=== PATIENT | male | born 1975 | race Caucasian/White ===

== ENCOUNTER → 2019-10-18 | Outpatient (CLI) | payer OTHER ==
--- NOTE | 2019-10-18 10:09 | RAD ---
CT MAXILLOFACIAL WO CONTRAST History: Reason: NASAL POLYP / Spl. Instructions: / History: Comparison: None. Technique: Noncontrast CT imaging was performed of the sinuses. Coronal and sagittal reconstructions were performed. Exposure: One or more of the following individualized dose reduction techniques were utilized for this examination: 1. Automated exposure control 2. Adjustment of the mA and/or kV according to patient size 3. Use of iterative reconstruction technique. Findings: Bilateral maxillary sinus mucosal thickening with fluid levels. Left greater than right frontal sinus mucosal thickening. Partial opacification of ethmoid air cells, left greater than right. Fluid, secretions and mucosal thickening within the left greater the right sphenoid sinuses. Polypoid lesion within the nasal canal on the left anteriorly and potentially bilaterally posteriorly. Narrowing of the bilateral infundibulum with opacification of the left due to mucosal thickening. Narrowing of the right frontal ethmoidal recess with mucosal thickening. Opacification of the left frontal ethmoidal recess. Opacification of bilateral sphenoid ostia with mucosal thickening. Nasal septum is relatively midline. Mastoid air cells are clear. No fracture. Orbits are unremarkable. Imaged intracranial contents are unremarkable. Impression: 1. Diffuse paranasal sinus disease with fluid levels and secretions in the maxillary and sphenoid sinuses, can be seen with acute sinusitis in the appropriate clinical setting. 2. Narrowed drainage pathways, as described. 3. Polypoid lesions within the nasal passages, as described. Electronically signed by: Casimiro Juárez DO (10/18/2019 10:05 AM) [id number]
== END ==
LOC: CT 09:12
PROVIDERS: ATTEND Otolaryngology
DX: J01.80 Other acute sinusitis (principal); J34.89 Other specified disorders of nose and nasal sinuses
CPT/HCPCS: 70486

== ENCOUNTER → 2019-12-12 | Outpatient (CLI) | payer OTHER ==
--- NOTE | 2019-12-12 14:32 | RAD ---
CERVICAL SPINE 2-3V DATE: 12/12/2019 10:48 AM INDICATION: RIGHT ARM PAIN AND WARMNESS, NECK PAIN COMPARISON: None. FINDINGS: The cervical spine is visualized to the level of the cervicothoracic junction on the lateral views. Bones/Alignment: No evidence of acute fracture. There is no listhesis. Normal alignment of the lateral masses of C1 on C2. Joints: Mild multilevel degenerative disc disease, moderate at C5-6. The facets are normally aligned. Soft tissue: No significant prevertebral soft tissue swelling. IMPRESSION: Mild to moderate cervical spondylosis. This could be further characterized with MRI, as clinically warranted. Electronically signed by: Maykel Mansfield MD (12/12/2019 2:30 PM) [id number]
== END | disposition home or self-care (01) ==
LOC: PMG 10:43
PROVIDERS: ATTEND Family Medicine
DX: M54.12 Radiculopathy, cervical region (principal); M47.812 Spondylosis without myelopathy or radiculopathy, cervical region; M50.322 Other cervical disc degeneration at C5-C6 level; M79.601 Pain in right arm
CPT/HCPCS: 72040

== ENCOUNTER → 2019-12-28 | Outpatient (CLI) | payer OTHER ==
--- NOTE | 2019-12-28 17:24 | RAD ---
EXAM: Left foot, 3 views. HISTORY: Pain. COMPARISON: None. FINDINGS: 3 views of the left foot are obtained. There is no fracture, dislocation or subluxation. There is a small plantar spur. IMPRESSION: No acute osseous finding. Electronically signed by: Stefanie Yanes MD (12/28/2019 5:21 PM) [id number]
--- NOTE | 2019-12-28 18:17 | RAD ---
EXAMINATION: ELBOW RIGHT 3V CLINICAL HISTORY: Right elbow pain TECHNIQUE: ELBOW RIGHT 3V Number of images/views: 3 COMPARISON: None FINDINGS: Joint spaces and alignment maintained. No acute fracture. Tiny medial epicondylar enthesophyte. No significant joint effusion. IMPRESSION: No acute osseous abnormality. Electronically signed by: Cornelio Jackson DO (12/28/2019 6:14 PM) [id number]
== END | disposition home or self-care (01) ==
LOC: RAD 16:10
PROVIDERS: ATTEND Physician Assistant
DX: M77.32 Calcaneal spur, left foot (principal); M77.8 Other enthesopathies, not elsewhere classified; M25.521 Pain in right elbow; M79.672 Pain in left foot
CPT/HCPCS: 73080; 73630

== ENCOUNTER → 2020-08-10 | Outpatient (CLI) | payer OTHER ==
--- NOTE | 2020-08-10 10:27 | RAD ---
EXAM: Scrotal sonogram. HISTORY: Right testicular pain. TECHNIQUE: Guzman scale and color Doppler sonographic imaging of the testes with spectral analysis was performed. COMPARISON: None. FINDINGS: The testes are normal in size and demonstrate normal symmetric blood flow. No focal testicu lar parenchymal lesion is seen. There are small bilateral epididymal cysts, measuring 10 mm on the ri ght and abdomen on the left. There is no hydrocele or varicocele. IMPRESSION: 1. Bilateral epididymal cysts. 2. Unremarkable testes. Electronically signed by: Stefanie Yanes MD (08/10/2020 10:24 AM) [id number]
== END ==
LOC: RAD 09:37
PROVIDERS: ATTEND Nurse Practitioner Family
DX: N50.3 Cyst of epididymis (principal); N50.811 Right testicular pain
CPT/HCPCS: 76870

== ENCOUNTER 2020-10-29 16:10 | Emergency (ER) | payer OTHER ==
[~2020-10-29] VITALS: Ht 177.8 cm; Wt 103.7 kg
--- NOTE | 2020-10-29 16:52 | PHYS DOC ---
Past History Past Surgical History: Appendectomy Additional Smoking Information: 1/2 PACK Alcohol Use: Rarely General Adult EDM: Chief Complaint: ABDOMINAL PAIN HPI: HPI: Patient is a 45-year-old male presents with right lower abdominal pain that radiates to lower back. Patient states "my pain feels just like I had me appendix out". Patient states "my pain started on Thursday but today it is gotten unbearable". Patient also reports some loose stool. Patient denies taking anything for discomfort. Patient denies fevers. Denies shortness of breath, chest pain. Denies nausea/vomiting. Denies health history. Review of Systems: Review of Systems: Constitutional: Denies fever or chills Eyes: Denies change in visual acuity HENT: Denies nasal congestion or sore throat Respiratory: Denies cough or shortness of breath Cardiovascular: Denies chest pain or edema GI: Reports left lower abdominal pain which radiates to flank, nausea, loose sto ols. Denies vomiting : Denies dysuria Musculoskeletal: Denies back pain or joint pain Integument: Denies rash Neurologic: Denies headache, focal weakness or sensory changes Endocrine: Denies polyuria or polydipsia Lymphatic: Denies swollen glands Psychiatric: Denies depression or anxiety Allergies: Allergies: Allergies Coded Allergies Type Severity Reaction Last Updated Verified Penicillins Allergy Unknown 10/29/20 Yes Sulfa (Sulfonamide Antibiotics) Allergy Unknown 10/29/20 Yes Physical Exam: PE: Constitutional: Well developed, well nourished, no acute distress, non-toxic appearance. [] HENT: Normocephalic, atraumatic, bilateral external ears normal, oropharynx moist, no oral exudates, nose normal. [] Eyes: PERRLA, EOMI, conjunctiva normal, no discharge. [] Neck: Normal range of motion, no tenderness, supple, no stridor. [] Cardiovascular:Heart rate regular rhythm, no murmur [] Lungs & Thorax: Bilateral breath sounds clear to auscultation [] Abdomen: Bowel sounds normal, soft, no tenderness, no masses, no pulsatile masses. [] Skin: Warm, dry, no erythema, no rash. [] Back: No tenderness, right CVA tenderness. [] Extremities: No tenderness, no cyanosis, no clubbing, ROM intact, no edema. [] Neurologic: Alert and oriented X 3, normal motor function, normal sensory function, no focal deficits noted. [] Psychologic: Affect normal, judgement normal, mood normal. [] Current Patient Data: Vital Signs: Vital Signs Date Time Temp Pulse Resp B/P (MAP) Pulse Ox O2 Delivery O2 Flow Rate FiO2 10/29/20 16:20 98.1 104 20 134/74 97 Room Air EKG: EKG: [] Radiology/Procedures: Radiology/Procedures: []Exam: CT of abdomen and pelvis without contrast INDICATION: Right lower quadrant pain TECHNIQUE: Sequential axial images through the abdomen and pelvis obtained without IV contrast. Sagittal and coronal reformatted images were reconstructed from the axial data and reviewed. Exposure: One or more of the following in the visualized dose reduction techniques were utilized for this examination: 1. Automated exposure control 2. Adjustment of the MA and/or KV according to patient size 3. Use of iterative of reconstructive technique Comparisons: None FINDINGS: Heart size is normal. No pericardial effusion. Visualized lung bases are clear. No pleural effusion. Evaluation of solid organs is limited secondary to noncontrast technique. Liver, spleen, pancreas, gallbladder and adrenals are unremarkable. No perinephric inflammation or hydronephrosis. No renal or ureteral calculi are identified. Bladder is partially distended and not well evaluated. Prostate is not enlarged. Fat stranding surrounding the ascending colon near diverticulosis. No free air free fluid. No obstruction. Abdominal aorta has a normal course and caliber. No enlarged intra-abdominal lymph nodes are identified. No suspicious osseous lesions or acute fractures. IMPRESSION: 1. Inflammatory changes surrounding the ascending colon area of diverticulosis, favored represent diverticulitis. No perforation or adjacent abscess. 2. Appendix is not identified. There is suture material noted at the cecum which may relate to prior appendectomy. Correlate with surgical history. Electronically signed by: Jessie Rubalcava MD (10/29/2020 5:11 PM) [facility] Heart Score: C/O Chest Pain: No Risk Factors: Risk Factors: DM, Current or recent (<one month) smoker, HTN, HLP, family history of CAD, obesity. Risk Scores: Score 0 - 3: 2.5% MACE over next 6 weeks - Discharge Home Score 4 - 6: 20.3% MACE over next 6 weeks - Admit for Clinical Observation Score 7 - 10: 72.7% MACE over next 6 weeks - Early Invasive Strategies Course & Med Decision Making: Course & Med Decision Making Pertinent Labs and Imaging studies reviewed. (See chart for details) [] 45-year-old male who presents with right lower abdominal pain that radiates to right, lower back. Patient states pain is similar to when he had his appendix out. CT of abdomen pelvis ordered to rule out kidney stone. Patient given 4 mg morphine and [address] of abdomen pelvis shows diverticulitis. WBC, 15.2. UA is positive for trace blood. Patient pain has improved after medication administered. Patient sent home on liquid diet and bowel rest. Patient is also sent home on antibiotics metroni dazole 500, every 8 and Cipro 500 twice daily x10 days. Patient should follow up with PCP tomorrow for further management and possible colonoscopy. Patient also sent home with a prescription for hydrocodone 5/325. Patient is hemodynamically stable and appreciative discharge plan. Dragon Disclaimer: [employer] Disclaimer: This electronic medical record was generated, in whole or in part, using a voice recognition dictation system. Departure Departure: Impression: Primary Impression: Diverticulitis Disposition: 01 HOME / SELF CARE / HOMELESS Condition: STABLE Referrals: MARCOS WHITE MD (PCP) Patient Instructions: Diverticulitis, [id number] Additional Instructions: You were seen in the emergency room for right lower abdominal pain. CT of your abdomen pelvis showed diverticulitis. I am sending you home with 2 antibiotics to treat infection. It is important that you do liquid diet only for now to let your bowels rest. I will see you home with some pain medication as well until you can follow-up with your PCP. Please call your PCP tomorrow to set up a follow-up appointment for further management and possible colonoscopy. If you have worsening symptoms or concerns such as unable to keep liquids down or control pain please return to the emergency room. EMERGENCY DEPARTMENT GENERAL DISCHARGE INSTRUCTIONS Thank you for coming to [facility] (ED) today and trusting us with you care. We trust that you had a positivie experience in our Emergency Department. If you wish to speak to the department management, you may call the director at [phone]. YOUR FOLLOW UP INSTRUCTIONS ARE FOLLOWS: 1. Do you have a private Doctor? If you do not have a private doctor, please ask for a resource list of physicians or clinics that may be able to assist you with follow up care. 2. The Emergency Physician has interpreted your x-rays. The X-Ray specialist will also review them. If there is a change in the findings, you will be notified in 48 hours when at all possible. 3. A lab test or culture has been done, your results will be reviewed and you will be notified if you need a change in treatment. ADDITIONAL INSTRUCTIONS AND INFORMATION: 1. Your care today has been supervised by a physician who is specially trained in emergency care. Many problems require more than one evaluation for a complete diagnosis and treatment. We recommend that you schedule your follow up appointment as recommended to ensure complete treatment of you illness or injury. If you are unable to obtain follow up care and continue to have a problem, or if your condition worsens, we recommend that you return to the ED. 2. We are not able to safely determine your condition over the phone nor are we able to give sound medical advice over the phone. For these safety reasons, if you call for medical advice we will ask you to come to the ED for further evaluation. 3. If you have any questions regarding these discharge instructions please call the ED at [phone]. SAFETY INFORMATION: In the interest of safety, wellness, and injury prevention; we encourage you to wear your sealbelt, if you smoke; quite smoking, and we encourage family to use a protective helmet for bicycling and other sporting events that present an increased risk for head injury. IF YOUR SYMPTOMS WORSEN OR NEW SYMPTOMS DEVELOP, OR YOU HAVE CONCERNS ABOUT YOUR CONDITION; OR IF YOUR CONDITION WORSENS WHILE YOU ARE WAITING FOR YOUR FOLLOW UP APPOINTMENT; EITHER CONTACT YOUR PRIMARY CARE DOCTOR, THE PHYSICIAN WHOSE NAME AND NUMBER YOU WERE GIVEN, OR RETURN TO THE ED IMMEDIATELY. Scripts Ondansetron Hcl (ZOFRAN) 4 Mg Tablet 4 MG PO TID PRN PRN for NAUSEA, #9 TAB Prov: FALLON MANTILLA APRN 10/29/20 Hydrocodone Bit/Acetaminophen (HYDROCODONE-APAP 5-325 ) 1 Each Tablet 1 TAB PO PRN Q6HRS PRN for PAIN for 2 Days, #12 TAB 0 Refills Prov: FALLON MANTILLA APRN 10/29/20 Metronidazole (FLAGYL) 500 Mg Tablet 500 MG PO Q8HRS for diverticulitis for 10 Days, #30 TAB Prov: FALLON MANTILLA APRN 10/29/20 Ciprofloxacin Hcl (CIPRO) 500 Mg Tablet 500 MG PO BID for diverticulisits for 10 Days, #20 TAB Prov: FALLON MANTILLA APRN 10/29/20 FALLON MANTILLA APRN Oct 29, 2020 16:52
[2020-10-29] MEDS ORDERED: MORPHINE SULFATE 4 MG/ML DISP.SYRIN. IV ONE (17:00)
[2020-10-29] MEDS ORDERED: ONDANSETRON PF 4 MG/2 ML VIAL. IVP ONE (17:00)
[2020-10-29 17:12] LABS: BASO # 0.1 x10^3/uL (0.0-0.2); BASO % 0 % (0-3); EOS # 0.3 x10^3/uL (0.0-0.7); EOS % 2 % (0-3); HEMATOCRIT 42.5 % (39.0-53.0); HEMOGLOBIN 14.5 g/dL (13.0-17.5); LYMPH # 2.2 x10^3/uL (1.0-4.8); LYMPH % 15 % (24-48); MEAN CORPUSCULAR HEMOGLOBIN 32 pg (25-35); MEAN CORPUSCULAR HGB CONC 34 g/dL (31-37); MEAN CORPUSCULAR VOLUME 93 fL (79-100); MONO # 1.4 x10^3/uL (0.0-1.1); MONO % 9 % (0-9); NEUT # 11.2 x10^3uL (1.8-7.7); NEUT % 74 % (31-73); PLATELET COUNT 215 x10^3/uL (140-400); RED BLOOD COUNT 4.56 x10^6/uL (4.30-5.70); RED CELL DISTRIBUTION WIDTH 13.3 % (11.5-14.5); WHITE BLOOD COUNT 15.2 x10^3/uL (4.0-11.0)
--- NOTE | 2020-10-29 17:14 | RAD ---
Exam: CT of abdomen and pelvis without contrast INDICATION: Right lower quadrant pain TECHNIQUE: Sequential axial images through the abdomen and pelvis obtained without IV contrast. Sagit rubio and coronal reformatted images were reconstructed from the axial data and reviewed. Exposure: One or more of the following in the visualized dose reduction techniques were utilized for this examination: 1. Automated exposure control 2. Adjustment of the MA and/or KV according to patient size 3. Use of iterative of reconstructive technique Comparisons: None FINDINGS: Heart size is normal. No pericardial effusion. Visualized lung bases are clear. No pleural effusion. Evaluation of solid organs is limited secondary to noncontrast technique. Liver, spleen, pancreas, gallbladder and adrenals are unremarkable. No perinephric inflammation or hydronephrosis. No renal or ureteral calculi are identified. Bladder is partially distended and not well evaluated. Prostate is not enlarged. Fat stranding surrounding the ascending colon near diverticulosis. No free air free fluid. No obstruc tion. Abdominal aorta has a normal course and caliber. No enlarged intra-abdominal lymph nodes are identified. No suspicious osseous lesions or acute fractures. IMPRESSION: 1. Inflammatory changes surrounding the ascending colon area of diverticulosis, favored represent di verticulitis. No perforation or adjacent abscess. 2. Appendix is not identified. There is suture material noted at the cecum which may relate to prior appendectomy. Correlate with surgical history. Electronically signed by: Jessie Rubalcava MD (10/29/2020 5:11 PM) [facility]
[2020-10-29 17:18] LABS: BILIRUBIN,URINE NEG (NEG); CALCIUM 8.9 mg/dL (8.5-10.1); CLARITY,URINE CLEAR; COLOR,URINE YELLOW; CREATININE 1.1 mg/dL (0.7-1.3); GFR 71.8; GLUCOSE,URINE NEG (NEG); NITRITE,URINE NEG (NEG); POTASSIUM 3.6 mmol/L (3.5-5.1); UROBILINOGEN,URINE 0.2 mg/dL (0.2 mg/dL)
[2020-10-29 17:20] LABS: BACTERIA,URINE 0 /HPF (0-FEW); RBC,URINE OCC /HPF (0-2); SQUAMOUS EPITHELIAL CELL,UR OCC /LPF
[2020-10-29 17:24] LABS: ALBUMIN/GLOBULIN RATIO 1.2 (1.0-1.7); TOTAL PROTEIN 7.4 g/dL (6.4-8.2)
[2020-10-29] MEDS ORDERED: HYDR-2155 PO (18:23)
[2020-10-29] MEDS ORDERED: CIPR500T94 PO (18:23)
[2020-10-29] MEDS ORDERED: ONDA4TAB7 PO (18:23)
[2020-10-29] MEDS ORDERED: METR500T PO (18:23)
[2020-10-29 18:40] VITALS: BP 129/72
[2020-10-29 20:00] LABS: % ATYL 2 % (0-0); % BANDS 5 % (0-9); % BASOS 2 % (0-3); % EOS 1 % (0-5); % LYMPHS 15 % (24-48); % MONOS 8 % (0-10); % MYELOS 1 % (0-0); % SEGS 66 % (35-66)
[2020-10-29 20:01] LABS: PLT ESTIMATE ADEQUATE (ADEQUATE)
== END 2020-10-29 18:45 | disposition home or self-care (01) ==
LOC: ER 16:10
DX: K57.32 Diverticulitis of large intestine without perforation or abscess without bleeding (principal); F17.200 Nicotine dependence, unspecified, uncomplicated; Z90.89 Acquired absence of other organs; Z88.0 Allergy status to penicillin; Z88.2 Allergy status to sulfonamides
CPT/HCPCS: 36415; 74176; 80053; 81001; 85007; 85025; 96374; 96375; 99284; J2270; J2405